=== PATIENT | female | born 1950 | race Two or more races ===

== ENCOUNTER 2023-02-18 13:56 | Emergency (ER) | payer OTHER ==
[~2023-02-18] VITALS: Ht 165.1 cm; Wt 78.0 kg
[2023-02-18] MEDS ORDERED: MONTELUKAST SOD10 MG PO (15:39)
[2023-02-18] MEDS ORDERED: ROSUVASTATIN CA20 MG PO (15:39)
[2023-02-18] MEDS ORDERED: LOSARTAN-HCTZ1 EAC2 PO (15:39)
[2023-02-18] MEDS ORDERED: LETROZOLE2.5 MG PO (15:39)
[2023-02-18] MEDS ORDERED: OMEPRAZOLE20 MG PO (15:39)
[2023-02-18] MEDS ORDERED: INSULIN GL100 UNIT/3 SQ (15:39)
[2023-02-18] MEDS ORDERED: METOPROLOL SUC100 MG PO (15:39)
[2023-02-18] MEDS ORDERED: FUROSEMIDE20 MG PO (15:40)
[2023-02-18 17:57] LABS: HEMATOCRIT 40.6 % (36.0-45.00); HEMOGLOBIN 12.4 g/dL (12.0-15.00); MEAN CELL VOLUME 77.8 fL (80.00-100.00); MEAN CORPUSCULAR HEMOGLOBIN 23.9 pg (27.00-32.0); MEAN CORPUSCULAR HGB CONC 30.7 g/dl (32.0-36.0); PLATELET COUNT 335 K/uL (150-450); RED BLOOD COUNT 5.21 M/uL (4.00-6.00); RED CELL DISTRIBUTION WIDTH 20.6 % (11.5-14.5)
[2023-02-18 18:10] LABS: CALCIUM 9.2 mg/dL (8.5-10.1); CREATININE SERUM 1.33 mg/dL (0.55-1.02); GFR 38.89; POTASSIUM 3.89 mEq/L (3.5-5.1)
[2023-02-18 18:15] LABS: INR 1.57; PARTIAL THROMBOPLASTIN TIME 25.6 SECONDS (22.0-34.0)
[2023-02-18 18:27] LABS: PROTHROMBIN TIME 15.9 SECONDS (9.0-11.5)
[2023-02-18 20:53] LABS: PH,URINE 5.5 (5.0-8.0); URINE APPEARANCE Turbid; URINE BILIRRUBIN Small (NEGATIVE); URINE BLOOD Small; URINE COLOR Dark Yellow; URINE GLUCOSE Negative (NEGATIVE); URINE LEUKOCYTE Large; URINE NITRATE Negative
[2023-02-18 20:54] LABS: URINE EPITHELIAL CELLS 63.6 uL (0.0-38.8); URINE RBC 55.1 uL (0.0-20.8); URINE WBC 1930.1 uL (0.0-23.2)
[2023-02-18 20:56] LABS: URINE BACTERIA > 9821.5 uL (0.0-1933); URINE PROTEIN 100 (NEGATIVE)
== END 2023-02-18 22:50 | disposition home or self-care (01) ==
LOC: ER 13:57
PROVIDERS: Emergency Medicine
DX: L03.116 Cellulitis of left lower limb (principal); Z85.43 Personal history of malignant neoplasm of ovary; E11.9 Type 2 diabetes mellitus without complications; Z79.4 Long term (current) use of insulin; E78.00 Pure hypercholesterolemia, unspecified; I10 Essential (primary) hypertension
CPT/HCPCS: 36415; 96365; 96366; 99284; J0696; J7030